=== PATIENT | female | born 1955 | race Caucasian/White ===

== ENCOUNTER 2016-08-17 10:42 | Emergency (ER) | payer BC ==
--- NOTE | 2016-08-17 13:06 | RAD ---
THREE VIEWS OF THE RIGHT HAND: INDICATION: Fall with right hand injury. 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 There is mild STT osteoarthrosis. There is a subchondr al cyst-like abnormality involving the proximal lunate which is nonspecific. 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 There is scattered IP osteoarthrosis of the right hand. No definite acute fracture or subluxation is demonstrated. The examination does not appear appreciably changed from a comparison dated 03/31/14. IMPRESSION: Scattered osteoarthrosis of the right hand. No acute fracture or subluxation demonstrated. POS: [facility]
== END 2016-08-17 11:33 | disposition home or self-care (01) ==
LOC: NAV ERS 10:42
DX: S00.83XA Contusion of other part of head, initial encounter (principal); S60.221A Contusion of right hand, initial encounter; I10 Essential (primary) hypertension; E78.5 Hyperlipidemia, unspecified; Z79.899 Other long term (current) drug therapy; W01.0XXA Fall on same level from slipping, tripping and stumbling without subsequent striking against object, initial encounter